=== PATIENT | female | born 1960 | race Caucasian/White ===

== ENCOUNTER 2021-09-22 16:20 | Emergency (ER) | payer OTHER ==
[~2021-09-22 16:20] MED LIST: BACLOFEN 10MG T10 MG PO; FLOMAX 0.4 MG0.4 MG PO; MEDROL 4MG DOSEP4 MG PO; PERCOCET 5-3251 EACH PO
[2021-09-22] MEDS ORDERED: NORCO 5-325 TA1 EACH PO (19:22)
== END 2021-09-22 19:33 | disposition home or self-care (01) ==
LOC: FER 16:20
DX: M25.572 Pain in left ankle and joints of left foot (principal); M25.522 Pain in left elbow; M25.552 Pain in left hip; M25.562 Pain in left knee; M54.50 Low back pain, unspecified; I10 Essential (primary) hypertension; Z88.6 Allergy status to analgesic agent; W01.0XXA Fall on same level from slipping, tripping and stumbling without subsequent striking against object, initial encounter; Y93.01 Activity, walking, marching and hiking; Y92.219 Unspecified school as the place of occurrence of the external cause
CPT/HCPCS: 72100; 72220; 73502; 73564; 73610